=== PATIENT | female | born 1940 | race Caucasian/White ===

== ENCOUNTER 2016-10-06 08:40 | Emergency (ER) | payer MEDICARE ==
[2016-10-06 08:55] VITALS: BP 127/78
--- NOTE | 2016-10-06 09:13 | UC ---
Throat Pain/Nasal Barrett HPI - HPI Summary HPI Summary: SORE THROAT AND RIGHT EAR PAIN. COUGH. POST NASAL DRIP . YELLOW / GREEN SINUS DRAINAGE. FEELS VERY TIRED. SLIGHT HEADACHE. NO CHILLS. Sx worsened in the past few days and she is concerned for developing pneumonia and has had sinus infections in the past and had sinus surgery. [ End ] - History of Current Complaint Chief Complaint: UCRespiratory Stated Complaint: THROAT Time Seen by Provider: 10/06/16 09:00 Hx Obtained From: Patient ?: No Onset/Duration: Gradual Onset Cough: Productive Associated Signs & Symptoms: Positive: Sinus Discomfort, Nasal Discharge - Allergies/Home Medications Allergies/Adverse Reactions: Allergies Allergy/AdvReac Type Severity Reaction Status Date / Time Nitrofurantoin Allergy Severe CANT BREATH Verified 10/06/16 08:48 [From Macrobid] Sulfa Drugs Allergy Intermediate Coughing Verified 10/06/16 08:48 PMH/Surg Hx/FS Hx/Imm Hx Previously Healthy: Yes Endocrine History: Dyslipidemia Other Respiratory History: sinus surgery Psychological History: Anxiety, Depression - Surgical History Surgical History: Yes Surgery Procedure, Year, and Place: HYSTERECTOMY, EYE LIFT 3 YEARS AGO. BREAST REDUCTION,. bladder repair. SINUS SURGERY - Family History Known Family History: Positive: Hypertension - Social History Occupation: Retired Lives: With Family Alcohol Use: Occasionally Substance Use Type: None Smoking Status (MU): Never Smoked Tobacco - Immunization History Most Recent Influenza Vaccination: current Most Recent Pneumonia Vaccination: current Review of Systems Constitutional: Fatigue ENT: Sore Throat, Ear Ache, Nasal Discharge, Sinus Congestion, Sinus Pain/ Tenderness Respiratory: Cough All Other Systems Reviewed And Are Negative: Yes Physical Exam Triage Information Reviewed: Yes Appearance: Well-Appearing, No Pain Distress, Well-Nourished Vital Signs: Initial Vital Signs Temp 97.9 F 10/06/16 08:49 Pulse 77 10/06/16 08:49 Resp 16 10/06/16 08:49 BP 127/78 10/06/16 08:49 Pulse Ox 98 10/06/16 08:49 Vital Signs Reviewed: Yes Eye Exam: Normal ENT Exam: Normal ENT: Positive: Hearing grossly normal, Nasal congestion, TMs normal, Other: - b/ l ethmoid sinus pressure and pain to palpation. Negative: Tonsillar swelling, Tonsillar exudate Dental Exam: Normal Neck exam: Normal Neck: Positive: 1 Respiratory Exam: Normal Cardiovascular Exam: Normal Musculoskeletal Exam: Normal Neurological Exam: Normal Psychological Exam: Normal Skin Exam: Normal Throat Pain/Nasal Course/Dx - Course Course Of Treatment: if sx worsen over the next few days then may start antibiotics but likely viral at this time. she has complicated history of sinus infections and previous surgery with dr gerard and will have meds available if sx not improved -- she is aware of SE and will start probiotics - Differential Dx/Diagnosis Differential Diagnosis/HQI/PQRI: Pharyngitis, Sinusitis, Tonsillitis, URI Provider Diagnoses: sinusitis Discharge - Discharge Plan Condition: Good Disposition: HOME Prescriptions: Amoxicillin/Clavulanate TAB* [Augmentin TAB 875*] 875 mg PO BID #20 tab Benzonatate [Benzonatate 200 MG CAP] 200 mg PO TID PRN #20 cap PRN Reason: Cough Fluticasone NASAL * [Flonase *] 2 spray BOTH NARES DAILY #1 spray Patient Education Materials: Sinusitis (ED) Referrals: Kenn STEEL,Shantell Lacy [Primary Care Provider] - 3 Days Additional Instructions: As we discussed please continue Netti Pot , start flonase and if your symptoms worsen then you may start augmentin
== END 2016-10-06 09:32 | disposition home or self-care (01) ==
LOC: UCCORT 08:40
DX: J32.9 Chronic sinusitis, unspecified (principal); Z88.2 Allergy status to sulfonamides
CPT/HCPCS: 99212; G0463

== ENCOUNTER 2017-07-31 10:22 | Emergency (ER) | payer MEDICARE ==
[2017-07-31 10:44] VITALS: BP 121/76
--- NOTE | 2017-07-31 11:31 | UC ---
Lower Extremity/Ankle HPI - HPI Summary HPI Summary: 76 yo female with left 4th toe pain x 2 weeks stubbed it initially had significant bruising - History of Current Complaint Chief Complaint: UCLowerExtremity Stated Complaint: LEFT FOOT COMP Time Seen by Provider: 07/31/17 11:22 Hx Obtained From: Patient Onset/Duration: Sudden Onset, Lasting Weeks Severity Initially: Moderate Severity Currently: Moderate Pain Intensity: 5 Pain Scale Used: 0-10 Numeric Aggravating Factor(s): Standing, Ambulation Alleviating Factor(s): Rest, Elevation Able to Bear Weight: Yes - Allergies/Home Medications Allergies/Adverse Reactions: Allergies Allergy/AdvReac Type Severity Reaction Status Date / Time nitrofurantoin Allergy Difficulty Verified 07/31/17 10:36 [From Macrobid] Breathing Sulfa (Sulfonamide Allergy Difficulty Verified 07/31/17 10:36 Antibiotics) Breathing/Wheezing Home Medications: Home Medications Cetirizine HCl [All Day Allergy] 10 mg PO DAILY PRN 07/31/17 [History Confirmed 07/31/17] Fluticasone NASAL * [Flonase *] 2 spray BOTH NARES DAILY PRN 07/31/17 [History Confirmed 07/31/17] Levothyroxine TAB* [Synthroid 25 MCG TAB*] 1 tab PO DAILY 07/31/17 [History Confirmed 07/31/17] PMH/Surg Hx/FS Hx/Imm Hx Previously Healthy: Yes Endocrine History: Dyslipidemia Cardiovascular History: Hypertension - Surgical History Surgical History: Yes Surgery Procedure, Year, and Place: HYSTERECTOMY, EYE LIFT 3 YEARS AGO. BREAST REDUCTION,. bladder repair. SINUS SURGERY. Thyroidectomy - Family History Known Family History: Positive: Hypertension - Social History Alcohol Use: Occasionally Substance Use Type: None Smoking Status (MU): Never Smoked Tobacco - Immunization History Most Recent Influenza Vaccination: current Most Recent Pneumonia Vaccination: current Review of Systems Constitutional: Negative Skin: Bruising Eyes: Negative ENT: Negative Respiratory: Negative Cardiovascular: Negative Gastrointestinal: Negative Genitourinary: Negative Motor: Negative Neurovascular: Negative Musculoskeletal: Arthralgia Neurological: Negative Psychological: Negative Is Patient Immunocompromised?: No All Other Systems Reviewed And Are Negative: Yes Physical Exam Triage Information Reviewed: Yes Appearance: Well-Appearing, No Pain Distress, Well-Nourished Vital Signs: Initial Vital Signs Temp 97.6 F 07/31/17 10:39 Pulse 83 07/31/17 10:39 Resp 18 07/31/17 10:39 BP 121/76 07/31/17 10:39 Pulse Ox 97 07/31/17 10:39 Vital Signs Reviewed: Yes Eyes: Positive: Conjunctiva Clear ENT: Positive: Hearing grossly normal. Negative: Nasal congestion, Nasal drainage, Muffled voice, Hoarse voice Neck: Positive: Supple, Nontender Respiratory: Positive: Lungs clear, Normal breath sounds, No respiratory distress Cardiovascular: Positive: RRR, No Murmur Musculoskeletal: Positive: Edema @ - left 4th toe/no obvious deformity Neurological: Positive: Alert Psychological Exam: Normal Skin Exam: Normal Diagnostics - Radiology No standard instances Xray Interpretation: Positive (See Comments) - fx PP/min displaced Radiology Interpretation Completed By: ED Physician Lower Extremity Course/Dx - Differential Dx/Diagnosis Provider Diagnoses: toe fracture Discharge - Sign-Out/Discharge Documenting (check all that apply): Discharge - Discharge Plan Condition: Stable Disposition: HOME Patient Education Materials: Toe Fracture (ED) Referrals: Kenn STEEL,Shantell Lacy [Primary Care Provider] - 2 Weeks (recheck in 2-3 weeks if not better) Additional Instructions: tylenol post op shoe - Billing Disposition and Condition Condition: STABLE Disposition: HOME
--- NOTE | 2017-07-31 11:36 | RAD ---
HISTORY: left fourth toe pain, trauma COMPARISONS: August 13, 2007 VIEWS: 3, Frontal, lateral, and oblique views of the fourth digit of the left foot FINDINGS: BONE DENSITY: Normal. BONES: There is an oblique minimally displaced fracture of the head of the proximal phalanx of the fourth digit with extension to the articular surface. JOINTS: There is no arthropathy. ALIGNMENT: There is no dislocation. SOFT TISSUES: Unremarkable. OTHER FINDINGS: None. IMPRESSION: MINIMALLY DISPLACED FRACTURE OF THE PROXIMAL PHALANX OF THE FOURTH DIGIT WITH ARTICULAR EXTENSION
== END 2017-07-31 11:45 | disposition home or self-care (01) ==
LOC: UCCORT 10:22
DX: S92.512A Displaced fracture of proximal phalanx of left lesser toe(s), initial encounter for closed fracture (principal); W22.8XXA Striking against or struck by other objects, initial encounter; Y92.9 Unspecified place or not applicable; Z88.2 Allergy status to sulfonamides; Z88.8 Allergy status to other drugs, medicaments and biological substances
CPT/HCPCS: 99212; G0463

== ENCOUNTER 2018-01-15 09:20 | Emergency (ER) | payer MEDICARE ==
[2018-01-15 09:59] VITALS: BP 146/74
[2018-01-15] MEDS ORDERED: Levalbuterol 1.25MG/0.5ML NEB INH ONE (10:14)
--- NOTE | 2018-01-15 10:14 | UC ---
Respiratory Complaint HPI - HPI Summary HPI Summary: Pt presents with c/o sudden onset cough, nasal congestion, chest congestion that began last night. Pt has hx of bronchitis. - History of Current Complaint Chief Complaint: UCRespiratory Stated Complaint: UPPER RESPITORY,COUGH Time Seen by Provider: 01/15/18 10:04 Hx Obtained From: Patient ?: No Onset/Duration: Sudden Onset, Lasting Days, Still Present Timing: Constant Severity Initially: Moderate Severity Currently: Moderate Pain Intensity: 6 Character: Cough: Productive Aggravating Factors: Exertion, Deep Breaths, Recumbent Position Alleviating Factors: Nothing Associated Signs And Symptoms: Positive: Wheezing, URI, Nasal Congestion Related History: Seasonal Allergies - Risk Factors Pulmonary Embolism Risk Factors: Negative Cardiac Risk Factors: Elevated Lipids Pseudomonas Risk Factors: Negative Tuberculosis Risk Factors: Negative - Allergies/Home Medications Allergies/Adverse Reactions: Allergies Allergy/AdvReac Type Severity Reaction Status Date / Time nitrofurantoin Allergy Difficulty Verified 01/15/18 09:50 [From Macrobid] Breathing Sulfa (Sulfonamide Allergy Difficulty Verified 01/15/18 09:50 Antibiotics) Breathing/Wheezing PMH/Surg Hx/FS Hx/Imm Hx Previously Healthy: Yes Endocrine History: Dyslipidemia Respiratory History: Bronchitis GI/ History: Gastroesophageal Reflux - Surgical History Surgical History: Yes Surgery Procedure, Year, and Place: HYSTERECTOMY, EYE LIFT 3 YEARS AGO. BREAST REDUCTION,. bladder repair. SINUS SURGERY. Thyroidectomy. removal of bone in toe. - Family History Known Family History: Positive: Hypertension - Social History Occupation: Retired Lives: With Family Alcohol Use: Occasionally Substance Use Type: None Smoking Status (MU): Never Smoked Tobacco Have You Smoked in the Last Year: No - Immunization History Most Recent Influenza Vaccination: current Most Recent Pneumonia Vaccination: current Vaccination Up to Date: Yes Review of Systems Constitutional: Chills, Fatigue Skin: Negative Eyes: Negative ENT: Nasal Discharge Respiratory: Cough Cardiovascular: Chest Pain Gastrointestinal: Diarrhea - dry heaves prior to clinic visit and during visit at clinic, Nausea Genitourinary: Negative Motor: Negative Neurovascular: Negative Musculoskeletal: Myalgia Neurological: Negative Psychological: Negative Is Patient Immunocompromised?: No All Other Systems Reviewed And Are Negative: Yes Physical Exam Triage Information Reviewed: Yes Appearance: Ill-Appearing Vital Signs: Initial Vital Signs Temp 98.2 F 01/15/18 09:52 Pulse 100 01/15/18 09:52 Resp 18 01/15/18 09:52 BP 146/74 01/15/18 09:52 Pulse Ox 97 01/15/18 09:52 Vital Signs Reviewed: Yes Eye Exam: Normal ENT Exam: Other ENT: Positive: Nasal congestion Dental Exam: Normal Neck exam: Normal Respiratory: Positive: Wheezing Cardiovascular Exam: Normal Cardiovascular: Positive: Tachycardia Abdominal Exam: Normal Abdomen Description: Positive: Nontender Musculoskeletal Exam: Normal Neurological Exam: Normal Psychological Exam: Normal Skin Exam: Normal UC Diagnostic Evaluation - Laboratory O2 Sat by Pulse Oximetry: 97 Diagnostic Studies Comment: rapid flu: negative Respiratory Course/Dx - Differential Dx/Diagnosis Differential Diagnosis/HQI/PQRI: Bronchitis, Influenza, Pulmonary Embolism Provider Diagnoses: pneumonia Discharge - Sign-Out/Discharge Documenting (check all that apply): Patient Departure All imaging exams completed and their final reports reviewed: No Studies - Discharge Plan Condition: Stable Disposition: HOME Prescriptions: Azithromycin TAB* [Zithromax TAB (Z-MIIM) 250 mg #6 tabs] 2 tab PO .TODAY, THEN 1 DAILY #1 mimi Benzonatate CAP* [Tessalon 100 MG CAP*] 100 mg PO Q8H PRN #30 cap PRN Reason: Cough ceFUROXime TAB(*) [Ceftin TAB 250 MG(*)] 500 mg PO Q12H #20 tab Ondansetron TAB* [Zofran 4 MG Tab*] 4 mg PO Q6H PRN #20 tab PRN Reason: Nausea predniSONE TAB* [Deltasone 10 MG TAB*] 30 mg PO DAILY #12 tab Patient Education Materials: Pneumonia (ED) Referrals: Kenn STEEL,Shantell Lacy [Primary Care Provider] - If Needed Additional Instructions: Please note, if your symptoms do not improve and they worsen, please seek care at the closest emergency room as soon as possible. - Billing Disposition and Condition Condition: STABLE Disposition: Home
[2018-01-15] MEDS: Benzonatate CAP* 100 MG PO ONE (10:31)
[2018-01-15] MEDS: Levalbuterol 0.63MG/3ML NEB* UNIT OF USE INH ONE ×2 (10:36)
[2018-01-15] MEDS: Ondansetron ODT TAB* 4 MG PO ONE (10:55)
== END 2018-01-15 11:31 | disposition home or self-care (01) ==
LOC: UCCORT 09:20
DX: Z88.1 Allergy status to other antibiotic agents (principal); J18.9 Pneumonia, unspecified organism
CPT/HCPCS: 93005; 99213; A9270-GY; G0463

== ENCOUNTER 2018-04-15 08:20 | Emergency (ER) | payer MEDICARE ==
[2018-04-15 08:36] VITALS: BP 137/84
[2018-04-15] MEDS ORDERED: Ipratropium 0.5MG/2.5ML NEB* 0.5 MG/2.5 ML NEB.SOLN INH ONE (09:09)
[2018-04-15] MEDS ORDERED: Albuterol 2.5 MG/3 ML NEB.SOL* (0.083%) INH ONE (09:09)
--- NOTE | 2018-04-15 10:12 | UC ---
Respiratory Complaint HPI - HPI Summary HPI Summary: The patient is a 77-year-old female who has had cough and congestion treated with 3 courses of antibiotics for either bronchitis or pneumonia. In addition she also has left ear pain with swallowing. This has been going on for approximately 2 months. She is unsure if she has been febrile. Her cough is usually nonproductive. - History of Current Complaint Chief Complaint: UCGeneralIllness Stated Complaint: SORE THROAT, COUGH Time Seen by Provider: 04/15/18 08:53 Hx Obtained From: Patient Onset/Duration: Sudden Onset Timing: Constant Severity Initially: Mild Severity Currently: Mild Pain Intensity: 4 Character: Cough: Nonproductive Aggravating Factors: Nothing Associated Signs And Symptoms: Positive: Wheezing, Nasal Congestion - Allergies/Home Medications Allergies/Adverse Reactions: Allergies Allergy/AdvReac Type Severity Reaction Status Date / Time nitrofurantoin Allergy Difficulty Verified 04/15/18 08:36 [From Macrobid] Breathing Sulfa (Sulfonamide Allergy Difficulty Verified 04/15/18 08:36 Antibiotics) Breathing/Wheezing Home Medications: Home Medications Acetaminophen [Tylenol] 500 mg PO Q6HR 04/15/18 [History Confirmed 04/15/18] PMH/Surg Hx/FS Hx/Imm Hx Previously Healthy: Yes Respiratory History: Bronchitis, Pneumonia - Surgical History Surgical History: Yes Surgery Procedure, Year, and Place: HYSTERECTOMY, EYE LIFT 3 YEARS AGO. BREAST REDUCTION,. bladder repair. SINUS SURGERY. Thyroidectomy. removal of bone in toe. - Family History Known Family History: Positive: Hypertension - Social History Alcohol Use: Occasionally Substance Use Type: None Smoking Status (MU): Never Smoked Tobacco Have You Smoked in the Last Year: No - Immunization History Most Recent Influenza Vaccination: current Most Recent Pneumonia Vaccination: current Vaccination Up to Date: Yes Review of Systems All Other Systems Reviewed And Are Negative: Yes Constitutional: Positive: Negative Skin: Positive: Negative Eyes: Positive: Negative ENT: Positive: Ear Ache, Sinus Congestion Respiratory: Positive: Cough Cardiovascular: Positive: Negative Gastrointestinal: Positive: Negative Genitourinary: Positive: Negative Motor: Positive: Negative Neurovascular: Positive: Negative Musculoskeletal: Positive: Negative Neurological: Positive: Negative Psychological: Positive: Negative Physical Exam Triage Information Reviewed: Yes Appearance: Well-Appearing, No Pain Distress, Well-Nourished Vital Signs: Initial Vital Signs Temp 98.2 F 04/15/18 08:31 Pulse 92 04/15/18 08:31 Resp 16 04/15/18 08:31 BP 137/84 04/15/18 08:31 Pulse Ox 94 04/15/18 08:31 Vital Signs Reviewed: Yes Eyes: Positive: Conjunctiva Clear ENT: Positive: Hearing grossly normal, Nasal congestion, Uvula midline. Negative: Nasal drainage, TM bulging - Left TM retracted, Sinus tenderness Neck: Positive: Supple, Nontender Respiratory: Positive: No respiratory distress, No accessory muscle use, Wheezing - with forced expiration Cardiovascular: Positive: RRR Musculoskeletal: Positive: ROM Intact, No Edema Neurological: Positive: Alert Psychological Exam: Normal Skin Exam: Normal UC Diagnostic Evaluation - Laboratory O2 Sat by Pulse Oximetry: 94 - low normal/not hypoxic - Radiology Radiology Interpretation Completed By: Radiologist Summary of Radiographic Findings: stigmata of COPD Respiratory Course/Dx - Differential Dx/Diagnosis Provider Diagnosis: Bronchospasm with bronchitis, acute, Left serous otitis media Discharge - Sign-Out/Discharge Documenting (check all that apply): Patient Departure All imaging exams completed and their final reports reviewed: Yes - Discharge Plan Condition: Stable Disposition: HOME Prescriptions: Amoxicillin PO (*) [Amoxicillin 875 MG (*)] 875 mg PO BID #20 tab Fluticasone NASAL SPRAY 50MCG* [Flonase NASAL SPRAY 50MCG*] 2 spray BOTH NARES BID #1 btl predniSONE [Deltasone 20 MG TAB] 20 - 40 mg PO DAILY #10 tab Patient Education Materials: Acute Bronchitis (ED), How to Use a Metered-Dose Inhaler and a Spacer (ED), Serous Otitis Media (ED) Referrals: Kenn STEEL,Shantell Lacy [Primary Care Provider] - 2 Weeks Additional Instructions: recheck for new or worsening symptoms as discussed you may further tests if symptoms persist use inhaler as directed - Billing Disposition and Condition Condition: STABLE Disposition: Home
[2018-04-15] MEDS ORDERED: Albuterol HFA INHALER* 8 gm MDI INH ONE (10:18)
== END 2018-04-15 10:37 | disposition home or self-care (01) ==
LOC: UCCORT 08:20
DX: J20.9 Acute bronchitis, unspecified (principal); H65.92 Unspecified nonsuppurative otitis media, left ear; Z88.2 Allergy status to sulfonamides; Z88.1 Allergy status to other antibiotic agents
CPT/HCPCS: 71046; 99213; A9270-GY; G0463